=== PATIENT | female | born 2000 | race Native Hawaiian/Other Pacific Islander ===

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

== ENCOUNTER 2021-05-31 22:55 | Emergency (ER) | payer OTHER ==
[~2021-05-31] VITALS: Ht 165.1 cm; Wt 112.0 kg
[2021-05-31] MEDS ORDERED: BENADRYL25 MG PO (23:19)
== END 2021-06-01 00:05 | disposition home or self-care (01) ==
LOC: ED 22:55
DX: L50.9 Urticaria, unspecified (principal); I10 Essential (primary) hypertension; Z88.0 Allergy status to penicillin; Z88.8 Allergy status to other drugs, medicaments and biological substances; Z79.899 Other long term (current) drug therapy
CPT/HCPCS: 99282

== ENCOUNTER 2022-08-20 20:42 | Emergency (ER) | payer OTHER ==
[~2022-08-20] VITALS: Ht 165.1 cm; Wt 116.4 kg
[~2022-08-20 20:42] MED LIST changes: +BENADRYL25 MG PO
== END 2022-08-20 21:34 | disposition home or self-care (01) ==
LOC: ED 20:42
DX: H60.91 Unspecified otitis externa, right ear (principal); I10 Essential (primary) hypertension
CPT/HCPCS: 99282; A9270

== ENCOUNTER 2025-05-21 18:59 | Emergency (ER) | payer OTHER ==
[~2025-05-21] VITALS: Ht 165.1 cm; Wt 102.1 kg
[2025-05-21] MEDS ORDERED: COZAAR100 MG PO (19:50)
[2025-05-21] MEDS ORDERED: ACETAMINOPHEN 500 MG TAB PO ONE (21:15)
[2025-05-21 22:19] VITALS: BP 129/91
== END 2025-05-21 22:20 | disposition home or self-care (01) ==
LOC: ED 18:59
DX: S76.211A Strain of adductor muscle, fascia and tendon of right thigh, initial encounter (principal); I10 Essential (primary) hypertension; Z88.8 Allergy status to other drugs, medicaments and biological substances; Z88.1 Allergy status to other antibiotic agents; X58.XXXA Exposure to other specified factors, initial encounter
CPT/HCPCS: 73502; 84703; 99283; A9270